=== PATIENT | female | born 1950 | race Native Hawaiian/Other Pacific Islander ===

== ENCOUNTER 2022-01-06 15:26 | Emergency (ER) | payer MEDICARE, OTHER ==
[2022-01-06] MEDS ORDERED: SODIUM CHLORIDE 0.9% 1000 ML 1,000 ML IV ONE (16:28)
--- NOTE | 2022-01-06 16:58 | XRay Report ---
CHEST 1 VIEW 01/06/2022 3:51 PM INDICATION / CLINICAL INFORMATION: Altered Mental Status. COMPARISON: None available. FINDINGS: SUPPORT DEVICES: None. HEART / MEDIASTINUM: No significant abnormality. LUNGS / PLEURA: There is mild venous congestion. No focal infiltrate is seen. No pneumothorax. ADDITIONAL FINDINGS: No significant additional findings. IMPRESSION: 1. There is mild venous congestion. Signer Name: Stephan Liao MD Signed: 01/06/2022 4:54 PM Workstation Name: [id number]
[2022-01-06 17:13] LABS: Basophils % (Auto) 0.2 % (0.0-1.8); Eosinophils % (Auto) 0.8 % (0.0-4.3); Hematocrit 22.4 % (30.3-42.9); Hemoglobin 7.6 gm/dl (10.1-14.3); Lymphocytes # (Auto) 0.5 K/mm3 (1.2-5.4); Lymphocytes % (Auto) 10.2 % (13.4-35.0); Mean Corpuscular HGB Conc 34 % (30-34); Mean Corpuscular Volume 94 fl (79-97); Monocytes # (Auto) 0.4 K/mm3 (0.0-0.8); Monocytes % (Auto) 8.3 % (0.0-7.3); Platelet Count 128 K/mm3 (140-440); Red Blood Count 2.38 M/mm3 (3.65-5.03); Red Cell Distribution Width 14.9 % (13.2-15.2)
[2022-01-06 17:22] LABS: Alanine Aminotransferase 21 units/L (7-56); Albumin 2.3 g/dL (3.9-5); BUN/Creatinine Ratio 29; Blood Urea Nitrogen 23 mg/dL (7-17); Hemolysis Index 2
[2022-01-06 17:24] LABS: INR 1.09 (0.87-1.13)
[2022-01-06 18:31] LABS: Hyaline Casts,Urine 3 /LPF; Mucus,Urine FEW /HPF
[2022-01-06 18:35] LABS: Amphetamine Screen,Urine Negative; Benzodiazepines Screen,Urine Negative; Cannabinoid Screen,Urine Negative; Cocaine Screen,Urine Negative; Methadone Screen,Urine Negative; Opiate Screen,Urine Negative
[2022-01-06 18:38] LABS: Color,Urine Yellow (Yellow)
--- NOTE | 2022-01-06 18:48 | Emergency Department Report ---
ED General Adult HPI - General Chief complaint: Weakness Stated complaint: WEAKNESS PUI?: No Time Seen by Provider: 01/06/22 16:24 Source: EMS Mode of arrival: Stretcher Limitations: Language Barrier - History of Present Illness Initial comments: SPOUSE REPORTS PATIENT HAS BEEN WEAK FOR A FEW DAYS , no chest pain no sob , no fever -: Gradual, days(s) Severity scale (0 -10): 0 Consistency: constant Improves with: none Worsens with: none Associated Symptoms: malaise, weakness. denies: denies other symptoms, confusion, chest pain, cough Treatments Prior to Arrival: none - Related Data Allergies Allergy/AdvReac Type Severity Reaction Status Date / Time No Known Allergies Allergy Unverified 01/06/22 15:46 ED Review of Systems ROS: Stated complaint: WEAKNESS Other details as noted in HPI Constitutional: denies: chills, fever Eyes: denies: eye pain, eye discharge, vision change ENT: denies: ear pain, throat pain Respiratory: denies: cough, shortness of breath, wheezing Cardiovascular: denies: chest pain, palpitations Endocrine: no symptoms reported Gastrointestinal: denies: abdominal pain, nausea, diarrhea Genitourinary: denies: urgency, dysuria, discharge Musculoskeletal: denies: back pain, joint swelling, arthralgia Skin: denies: rash, lesions Neurological: denies: headache, weakness, paresthesias Psychiatric: denies: anxiety, depression Hematological/Lymphatic: denies: easy bleeding, easy bruising ED Past Medical Hx - Past Medical History Previous Medical History?: No Hx Hypertension: No ED Physical Exam - General Limitations: Language Barrier General appearance: alert, in no apparent distress - Head Head exam: Present: atraumatic, normocephalic - Eye Eye exam: Present: normal appearance - ENT ENT exam: Present: mucous membranes moist - Neck Neck exam: Present: normal inspection - Respiratory Respiratory exam: Present: normal lung sounds bilaterally. Absent: respiratory distress - Cardiovascular Cardiovascular Exam: Present: regular rate, normal rhythm. Absent: systolic murmur, diastolic murmur, rubs, gallop - GI/Abdominal GI/Abdominal exam: Present: soft, normal bowel sounds - Extremities Exam Extremities exam: Present: normal inspection - Back Exam Back exam: Present: normal inspection - Neurological Exam Neurological exam: Present: alert, oriented X3 - Psychiatric Psychiatric exam: Present: normal affect, normal mood - Skin Skin exam: Present: warm, dry, intact, normal color. Absent: rash ED Course Vital Signs 01/06/22 01/06/22 01/06/22 15:26 17:08 17:10 Temperature 97.7 F Pulse Rate 79 73 79 Respiratory 16 16 21 Rate Blood Pressure 104/64 Blood Pressure 90/50 [Left] O2 Sat by Pulse 95 100 100 Oximetry 01/06/22 01/06/22 01/06/22 17:15 17:21 17:25 Temperature Pulse Rate 80 79 79 Respiratory 20 18 19 Rate Blood Pressure 104/64 104/64 121/64 Blood Pressure [Left] O2 Sat by Pulse 100 100 100 Oximetry 01/06/22 01/06/22 01/06/22 17:31 17:35 17:41 Temperature Pulse Rate 79 78 82 Respiratory 24 16 17 Rate Blood Pressure 121/64 121/64 121/64 Blood Pressure [Left] O2 Sat by Pulse 100 100 100 Oximetry 01/06/22 01/06/22 18:05 18:11 Temperature Pulse Rate 79 82 Respiratory 20 14 Rate Blood Pressure 115/61 117/66 Blood Pressure [Left] O2 Sat by Pulse 100 Oximetry ED Medical Decision Making - Lab Data Result diagrams: 01/06/22 16:39 01/06/22 16:39 - EKG Data -: EKG Interpreted by Me EKG shows normal: sinus rhythm Rate: normal - EKG Data Interpretation: nonspecific ST-T wave fiona - Radiology Data Radiology results: report reviewed, image reviewed - Medical Decision Making work up showed anemia, seems chrnic , fluids gveb BP stablised, uti noted pt feels better Critical care attestation.: If time is entered above; I have spent that time in minutes in the direct care of this critically ill patient, excluding procedure time. ED Disposition Clinical Impression: Weakness, UTI (urinary tract infection), Dehydration Disposition: 01 HOME / SELF CARE / HOMELESS Is pt being admited?: No Does the pt Need Aspirin: No Condition: Stable Instructions: Dehydration, Elderly, [id number], Weakness, Urinary Tract Infection, Adult Referrals: PRIMARY CARE, [Primary Care Provider] - 3-5 Days
[2022-01-06 19:36] VITALS: BP 115/70
--- NOTE | 2022-01-07 10:38 | Electrocardiograph Report ---
Test Date: 2022-01-06 Test Time: 17:00:55 Pat Name: JANNET VARGAS Department: Room: Gender: F Family Mediator: NURSE : 1950 Requested By: KALPESH KING Order Number: [id number] Reading MD: Paul Araya Measurements Intervals [place] Rate: 76 P: 42 W[place]: 183 QRS: 52 QRSD: 80 T: 28 QT: 357 QTc: 402 Interpretive Statements Sinus rhythm Nonspecific T abnrm, anterolateral leads No previous ECG available for comparison Electronically Signed On 01-07-2022 10:38:04 EDT by Paul Araya
== END 2022-01-06 19:35 | disposition home or self-care (01) ==
LOC: ED 15:26
DX: N39.0 Urinary tract infection, site not specified (principal); R53.1 Weakness; E86.0 Dehydration; Z79.899 Other long term (current) drug therapy
CPT/HCPCS: 36415; 71045; 80053; 80307; 81001; 82140; 82550; 83880; 84443; 84484; 85025; 85610; 86140; 87086; 93005; 96360; 99284; J7030; 80320; G0480